=== PATIENT | male | born 1965 | race Two or more races ===

== ENCOUNTER 2017-06-01 14:37 | Emergency (ER) | payer MEDICAID ==
[2017-06-01] MEDS ORDERED: Ketorolac 30 MG/ML SDV IVPUSH ONE (15:17)
[2017-06-01] MEDS ORDERED: Tamsulosin 0.4 MG Cap.ER PO ONE ×2 (15:17→16:54)
[2017-06-01] MEDS ORDERED: Ondansetron 4 MG/2 ML SDV IVPUSH ONE (15:17)
[2017-06-01] MEDS ORDERED: Sodium Chloride 0.9% 1,000 ML IV ONE (15:18)
[2017-06-01] MEDS: Sodium Chloride 0.9% 10 ML Syringe FLUSH PRN ×2 (15:30→15:36)
[2017-06-01 16:03] LABS: CHLORIDE,CL 104 mmol/L (98-107); SODIUM,NA 141 mmol/L (136-145)
[2017-06-01] MEDS ORDERED: cefTRIAXone 1 GM in Sodium Chloride 0.9% 100 ML IV ONE (16:22)
--- NOTE | 2017-06-01 16:37 | EDM.PDOC ---
ED HPI GENERAL MEDICAL PROBLEM - General Chief Complaint: General Stated Complaint: right flank to groin pain, difficulty urinating Time Seen by Provider: 06/01/17 15:12 Source of Information: Reports: Patient History Limitations: Reports: No Limitations - History of Present Illness INITIAL COMMENTS - FREE TEXT/NARRATIVE: Patient brought to ER by relative for evaluation of flank pain. Has quite a significant history of kidney stones that stretches back a number of years. He is fairly certain this pain is stone-related. Patient had some flank pain on the right last week and passed a stone. Pain resolved. Returned today in same right sided pattern. Intermittent nausea noted. No emesis. Mild loose stools today. No fevers/chills. Had trace of blood in urine about three weeks ago but that resolved. No other complaints. Recently moved to [place] from [place]. Disabled from previous back injury. Medical history includes morbid obesity, hypertension, high cholesterol, Type 2 diabetes, asthma. right flank pain/groin Pain Score (Numeric/FACES): 10 - Related Data Allergies Allergy/AdvReac Type Severity Reaction Status Date / Time morphine Allergy Shortness Verified 06/01/17 14:53 of Breath Home Meds: Home Meds RX: Albuterol [Ventolin HFA] 2 puff INH BID PRN 06/01/17 [History] RX: Atenolol 2 tab PO DAILY 06/01/17 [History] RX: Budesonide [Pulmicort Flexhaler] 1 puff IH BID 06/01/17 [History] RX: Lisinopril 40 mg PO DAILY 06/01/17 [History] RX: Pravastatin Sodium 80 mg PO DAILY 06/01/17 [History] RX: glipiZIDE [Glucotrol XL] 10 mg PO ASDIRECTED 06/01/17 [History] RX: metFORMIN HCl [Metformin HCl] 1,000 mg PO ASDIRECTED 06/01/17 [History] RX: traMADol HCl [Tramadol HCl] 50 mg PO Q8HR PRN 06/01/17 [History] Sulfamethoxazole/Trimethoprim [Septra DS] 1 tab PO BID #14 tablet 06/01/17 [Rx] Past Medical History HEENT History: Reports: Impaired Vision Cardiovascular History: Reports: Afib, High Cholesterol, Hypertension Respiratory History: Reports: Asthma Gastrointestinal History: Reports: GERD, Other (See Below) Other Gastrointestinal History: gall stones Genitourinary History: Reports: Renal Calculus Musculoskeletal History: Reports: Arthritis, Back Pain, Chronic, Other (See Below) Other Musculoskeletal History: hx of lower back injury L4-L5 Endocrine/Metabolic History: Reports: Diabetes, Type II Dermatologic History: Reports: Eczema - Infectious Disease History Infectious Disease History: Reports: Chicken Pox, Measles - Past Surgical History GI Surgical History: Reports: None Male Surgical History: Reports: Kidney Stone Extraction Musculoskeletal Surgical History: Reports: None Social & Family History - Tobacco Use Smoking Status *Q: Never Smoker Second Hand Smoke Exposure: No - Caffeine Use Caffeine Use: Reports: Energy Drinks Other Caffeine Use: occasionally - Recreational Drug Use Recreational Drug Use: No ED ROS GENERAL - Review of Systems Review Of Systems: See Below Constitutional: Reports: No Symptoms HEENT: Reports: No Symptoms Respiratory: Reports: No Symptoms Cardiovascular: Reports: No Symptoms GI/Abdominal: Reports: Diarrhea, Nausea. Denies: Black Stool, Bloody Stool, Vomiting : Reports: Dysuria, Flank Pain, Hematuria Musculoskeletal: Reports: No Symptoms Skin: Reports: No Symptoms Neurological: Reports: No Symptoms Psychiatric: Reports: No Symptoms ED EXAM, GENERAL - Physical Exam Exam: See Below Exam Limited By: No Limitations General Appearance: Alert, No Apparent Distress, Obese Eye Exam: Bilateral Eye: EOMI, PERRL Ears: Normal External Exam Nose: Normal Inspection Throat/Mouth: Normal Lips, Normal Voice, No Airway Compromise Head: Atraumatic, Normocephalic Neck: Normal Inspection, Supple, Non-Tender, Full Range of Motion Respiratory/Chest: No Respiratory Distress, Lungs Clear, Normal Breath Sounds, No Accessory Muscle Use Cardiovascular: Regular Rate, Rhythm, No Murmur Peripheral Pulses: 2+: Radial (L), Radial (R) GI/Abdominal: Normal Bowel Sounds, Soft, Non-Tender, Other (rounded obese abdomen) (Male) Exam: Deferred Rectal (Males) Exam: Deferred Back Exam: Other (no tenderness with percussion of flank area and low back ). No: CVA Tenderness (L), CVA Tenderness (R), Muscle Spasm Extremities: Non-Tender, Normal Capillary Refill Neurological: Alert, Oriented, CN II-XII Intact, Normal Cognition, Normal Gait, No Motor/Sensory Deficits Psychiatric: Normal Affect, Normal Mood Skin Exam: Warm, Dry, Intact, Normal Color Course - Vital Signs Last Recorded V/S: Last Vital Signs Temp 36.4 C 06/01/17 14:38 Pulse 65 06/01/17 16:30 Resp 18 06/01/17 16:30 BP 156/91 H 06/01/17 16:30 Pulse Ox 97 06/01/17 16:30 - Orders/Labs/Meds Labs: Laboratory Tests 06/01/17 06/01/17 06/01/17 Range/Units 15:25 15:38 15:38 WBC 10.1 (4.0-10.2) K/uL RBC 4.91 (4.33-5.41) M/uL Hgb 14.1 (13.1-16.8) g/dL Hct 43.1 (39.0-49.0) % MCV 87.8 (84.0-98.0) fL MCH 28.7 (28.2-33.3) pg MCHC 32.7 (31.7-36.0) g/dL RDW 13.8 (11.2-14.1) % Plt Count 309 (150-350) K/uL Neut % (Auto) 71.5 (45.0-80.0) % Lymph % (Auto) 20.0 (10.0-50.0) % [place] % (Auto) 6.6 (2.0-14.0) % Eos % (Auto) 1.5 (0.0-5.0) % Baso % (Auto) 0.4 (0.0-2.0) % Neut # (Auto) 7.24 H (1.40-7.00) K/uL Lymph # (Auto) 2.03 (0.50-3.50) K/uL [place] # (Auto) 0.67 (0.00-1.00) K/uL Eos # (Auto) 0.15 (0.00-0.50) K/uL Baso # (Auto) 0.04 (0.00-0.20) K/uL Sodium 141 (136-145) mmol/L Potassium 4.6 (3.5-5.1) mmol/L Chloride 104 (98-107) mmol/L Carbon Dioxide 29.3 (21.0-32.0) mmol/L BUN 18 (7-18) mg/dL Creatinine 1.16 (0.51-1.17) mg/dL Est Cr Clr Drug Dosing 88.58 mL/min Estimated GFR (MDRD) > 60 mL/min Glucose 183 H (74-106) mg/dL Calcium 8.9 (8.5-10.1) mg/dL Total Bilirubin 0.4 (0.2-1.0) mg/dL AST 21 (15-37) U/L ALT 25 (12-78) U/L Alkaline Phosphatase 41 L (46-116) IU/L Total Protein 7.7 (6.4-8.2) g/dL Albumin 3.1 L (3.4-5.0) g/dL Specimen Type Urinblad Urine Color Yellow Urine Appearance Clear Urine pH 7.0 (5.0-9.0) Ur Specific [place] 1.020 (1.005-1.030) Urine Protein 100 H (NEGATIVE) mg/dL Urine Glucose (UA) Negative (NEGATIVE) mg/dL Urine Ketones Negative (NEGATIVE) mg/dL Urine Occult Blood Small H (NEGATIVE) Urine Nitrite Positive H (NEGATIVE) Urine Bilirubin Negative (NEGATIVE) Urine Urobilinogen 0.2 (0.2-1.0) E.U./dL Ur Leukocyte Esterase Moderate H (NEGATIVE) Urine RBC 5-10 H /HPF Urine WBC 30-40 H /HPF Ur Epithelial Cells Few /LPF Urine Bacteria Few (NONE TO FEW) /HPF Urine Other Meds: Medications Discontinued Medications Generic Name Dose Route Start Last Admin Trade Name Freq PRN Reason Stop Dose Admin Sodium Chloride 1,000 mls @ 999 mls/hr 06/01/17 15:18 06/01/17 15:38 Normal Saline IV 06/01/17 16:18 999 mls/hr .BOLUS ONE Administration Ceftriaxone Sodium 1 gm/ 100 mls @ 200 mls/hr 06/01/17 16:22 06/01/17 16:42 Sodium Chloride IV 06/01/17 16:51 200 mls/hr ONETIME ONE Administration Ketorolac Tromethamine 30 mg 06/01/17 15:17 06/01/17 15:34 Toradol IVPUSH 06/01/17 15:18 30 mg ONETIME ONE Administration Ondansetron HCl 4 mg 06/01/17 15:17 06/01/17 15:29 Zofran IVPUSH 06/01/17 15:18 4 mg ONETIME ONE Administration Sodium Chloride 10 ml 06/01/17 15:17 06/01/17 15:36 Saline Flush FLUSH 10 ml ASDIRECTED PRN Administration Keep Vein Open Tamsulosin HCl 0.4 mg 06/01/17 15:17 06/01/17 15:29 Flomax PO 06/01/17 15:18 0.4 mg ONETIME ONE Administration Tamsulosin HCl 0.4 mg 06/01/17 16:54 06/01/17 16:59 Flomax PO 06/01/17 16:55 Not Given ASDIRECTED ONE - Radiology Interpretation Free Text/Narrative:: CT confirmed presence of significant hydronephrosis on right as well as three stones in right ureter, largest of which measures approximately 9mm CT Results Date: 06/01/17 CT Results Time: 15:45 - Re-Assessments/Exams Free Text/Narrative Re-Assessment/Exam: 06/01/17 16:49 IV access obtained. NS bolus given along with Toradol, Zofran, and PO Flomax. CT performed. Radiology confirmed presence of three stones in right ureter as well as hydronephrosis. Call placed to on-call Urologist at [facility] in [place]. He was in agreement with current treatment plan and will have Urology office call patient on Friday to schedule a follow up appointment with them. Given size of stone, patient will most likely need to undergo lithotripsy treatment. UA eventually obtained. Found to have WBC suggesting UTI. Culture requested. Patient received IV Rocephin in ER for treatment of UTI. Free Text/Narrative Re-Assessment/Exam: 06/01/17 16:55 Patient given ER packs of: Bactrim: take BID for 10 days unless changes are made by Urology Zofran ODT: SL Q6 PRN nausea Toradol 10mg: PO Q6 PRN pain Tramadol 50mg: PO Q6 PRN pain Single Flomax to take tomorrow at 1500 (Tomorrow is holiday and no local pharmacies will be open) If severe symptoms return, patient knows that he can return to our ER or the [facility] in [place] as needed. Departure - Departure Time of Disposition: 16:30 Disposition: Home, Self-Care 01 Condition: Good Clinical Impression: Kidney stone on right side - Discharge Information Prescriptions: Sulfamethoxazole/Trimethoprim [Septra DS] 1 tab PO BID #14 tablet Instructions: Ondansetron oral dissolving tablet, Ketorolac injection, Ondansetron injection, Ceftriaxone injection, Tramadol tablets, Tamsulosin capsules, Ketorolac tablets, Sulfamethoxazole; Trimethoprim, SMX-TMP tablets Referrals: PCP,None [Primary Care Provider] - Forms: ED Department Discharge Additional Instructions: Stay hydrated. If worsening symptoms return and you are no longer able to take care of them well on your own at home, return to the ER for further evaluation, either at [facility] or here in [place]. Take meds as follows: Bactrim: take every 12 hours for 10 days unless changes are made by Urology. The first three days supply you received in the ER. Zofran ODT: dissolve under tongue every 6 hours as needed for nausea Toradol 10mg: take one pill every 6 hours as needed for pain Tramadol 50mg: take one pill every 6 hours as needed for pain Single Flomax to take tomorrow at 3PM If you are unable to see Urology by Friday or Friday (They are to call you Friday to set up an appointment) then follow up at a local clinic as needed if you require additional medication. We do have a clinic here at the hospital as one option.
== END 2017-06-01 17:25 | disposition home or self-care (01) ==
LOC: LL.ED 14:37
DX: N13.2 Hydronephrosis with renal and ureteral calculous obstruction (principal); I10 Essential (primary) hypertension; E78.00 Pure hypercholesterolemia, unspecified; J45.909 Unspecified asthma, uncomplicated; E11.9 Type 2 diabetes mellitus without complications; Z79.84 Long term (current) use of oral hypoglycemic drugs; Z79.899 Other long term (current) drug therapy; Z88.5 Allergy status to narcotic agent
CPT/HCPCS: 36415; 74176; 80053; 81001; 85025; 87086; 96361; 96365; 99284; A9270; J0696; J1885; J2405; J7030; J7050; 87088; 87186

== ENCOUNTER 2017-08-11 13:09 | Emergency (ER) | payer SELFPAY ==
--- NOTE | 2017-08-11 13:43 | EDM.PDOC ---
ED HPI GENERAL MEDICAL PROBLEM - General Chief Complaint: Flank Pain Stated Complaint: R FLANK PAIN Time Seen by Provider: 08/11/17 13:15 Source of Information: Reports: Patient History Limitations: Reports: No Limitations - History of Present Illness INITIAL COMMENTS - FREE TEXT/NARRATIVE: Patient is a 51-year-old who is seen with history of right flank pain which started yesterday describes the pain as 10 out of 10 he has had multiple kidney stones in the past Onset: Gradual Duration: Day(s):, Waxing/Waning Location: Reports: Abdomen Quality: Reports: Stabbing Severity: Severe Improves with: Reports: Medication Worsens with: Reports: None Context: Reports: Other (Renal stones) Right Flank Pain Score (Numeric/FACES): 10 - Related Data Allergies Allergy/AdvReac Type Severity Reaction Status Date / Time morphine Allergy Shortness Verified 08/11/17 13:18 of Breath Home Meds: Home Meds Albuterol [Ventolin HFA] 2 puff INH BID PRN 06/01/17 [History] Atenolol 2 tab PO DAILY 06/01/17 [History] Budesonide [Pulmicort Flexhaler] 1 puff IH BID 06/01/17 [History] Lisinopril 40 mg PO DAILY 06/01/17 [History] Pravastatin Sodium 80 mg PO DAILY 06/01/17 [History] glipiZIDE [Glucotrol XL] 10 mg PO ASDIRECTED 06/01/17 [History] metFORMIN HCl [Metformin HCl] 1,000 mg PO ASDIRECTED 06/01/17 [History] Past Medical History HEENT History: Reports: Impaired Vision Cardiovascular History: Reports: Afib, High Cholesterol, Hypertension Respiratory History: Reports: Asthma Gastrointestinal History: Reports: GERD, Other (See Below) Other Gastrointestinal History: gall stones Genitourinary History: Reports: Renal Calculus Musculoskeletal History: Reports: Arthritis, Back Pain, Chronic, Other (See Below) Other Musculoskeletal History: hx of lower back injury L4-L5 Endocrine/Metabolic History: Reports: Diabetes, Type II Dermatologic History: Reports: Eczema - Infectious Disease History Infectious Disease History: Reports: Chicken Pox, Measles - Past Surgical History GI Surgical History: Reports: None Male Surgical History: Reports: Kidney Stone Extraction Musculoskeletal Surgical History: Reports: None Social & Family History - Tobacco Use Smoking Status *Q: Never Smoker Second Hand Smoke Exposure: No - Caffeine Use Caffeine Use: Reports: Energy Drinks Other Caffeine Use: occasionally - Recreational Drug Use Recreational Drug Use: No ED ROS GENERAL - Review of Systems Review Of Systems: See Below Constitutional: Reports: Other (Obese) HEENT: Reports: No Symptoms Respiratory: Reports: No Symptoms Cardiovascular: Reports: No Symptoms Endocrine: Reports: No Symptoms : Reports: Flank Pain Musculoskeletal: Reports: No Symptoms Skin: Reports: No Symptoms Neurological: Reports: No Symptoms Psychiatric: Reports: No Symptoms Hematologic/Lymphatic: Reports: No Symptoms Immunologic: Reports: No Symptoms ED EXAM, RENAL/ - Physical Exam Exam: See Below Exam Limited By: No Limitations General Appearance: Alert, WD/WN, No Apparent Distress, Moderate Distress, Severe Distress Ears: Normal External Exam, Normal Canal, Hearing Grossly Normal, Normal TMs Nose: Normal Inspection, Normal Mucosa, No Blood Throat/Mouth: Normal Inspection, Normal Lips, Normal Teeth, Normal Gums, Normal Oropharynx, Normal Voice, No Airway Compromise Head: Atraumatic, Normocephalic Neck: Normal Inspection, Supple, Non-Tender, Full Range of Motion Respiratory/Chest: No Respiratory Distress, Lungs Clear, Normal Breath Sounds, No Accessory Muscle Use, Chest Non-Tender Cardiovascular: Regular Rate, Rhythm, No Murmur GI/Abdominal: Normal Bowel Sounds, Soft, Non-Tender, No Organomegaly, No Distention, No Abnormal Bruit, No Mass, Tender (Right flank) (Male) Exam: No Hernia, Normal Inspection, Normal Prostate, Circumcised Rectal (Males) Exam: Normal Exam, Normal Rectal Tone, Prostate Normal Back Exam: CVA Tenderness (R) Extremities: Normal Inspection, Normal Range of Motion, Non-Tender, Normal Capillary Refill, No Pedal Edema Neurological: Alert, Oriented, CN II-XII Intact, Normal Cognition, Normal Gait, Normal Reflexes, No Motor/Sensory Deficits Psychiatric: Normal Affect, Normal Mood Skin Exam: Warm, Dry, Intact, Normal Color, No Rash Lymphatic: No Adenopathy Course - Vital Signs Last Recorded V/S: Last Vital Signs Temp 99 F 08/11/17 13:11 Pulse 98 08/11/17 13:11 Resp 18 08/11/17 13:11 BP 152/97 H 08/11/17 14:03 Pulse Ox 96 08/11/17 13:11 - Orders/Labs/Meds Orders: Active Orders 24 hr Category Date Time Status Abdomen 1V Flat [CR] Stat Exams 08/11/17 13:38 Taken Meds: Medications Discontinued Medications Generic Name Dose Route Start Last Admin Trade Name Davian PRN Reason Stop Dose Admin Atenolol 50 mg 08/11/17 14:06 Tenormin PO 08/11/17 14:07 ONETIME ONE Ketorolac Tromethamine 60 mg 08/11/17 13:42 08/11/17 13:56 Toradol IM 08/11/17 13:43 60 mg ONETIME ONE Administration Lisinopril 40 mg 08/11/17 14:04 Prinivil PO 08/11/17 14:05 NOW STA Tamsulosin HCl 0.4 mg 08/11/17 13:41 08/11/17 13:56 Flomax PO 08/11/17 13:42 0.4 mg ONETIME ONE Administration Departure - Departure Time of Disposition: 14:23 Disposition: DC/[facility]fer to [facility] 02 Clinical Impression: Hypertension, Right nephrolithiasis, Hydronephrosis of right kidney - Discharge Information Referrals: PCP,None [Primary Care Provider] - Forms: ED Department Discharge Care Plan Goals: At this time we'll control his pain with Toradol and Flomax I will control his hypertension in the ER patient needs to reduce fill his medications in the pharmacy I will provide him with scripts for his lisinopril and atenolol. For one month supply he will need to get a primary care physician in that period of time for refills we will also refer him to the ER in [place] for CT of the abdomen secondary to calculi - My Orders Last 24 Hours: My Active Orders 08/11/17 13:38 Abdomen 1V Flat [CR] Stat - Assessment/Plan Last 24 Hours: My Active Orders 08/11/17 13:38 Abdomen 1V Flat [CR] Stat
[2017-08-11] MEDS: Tamsulosin 0.4 MG Cap.ER PO ONE (13:56)
[2017-08-11] MEDS: Ketorolac 60 MG/2 ML SDV IM ONE (13:56)
[2017-08-11] MEDS: Atenolol 50 MG Tab PO ONE (14:14)
[2017-08-11] MEDS: Lisinopril 20 MG Tab PO STA (14:14)
== END 2017-08-11 14:45 ==
LOC: LL.ED 13:09
DX: N13.2 Hydronephrosis with renal and ureteral calculous obstruction (principal); E78.00 Pure hypercholesterolemia, unspecified; I10 Essential (primary) hypertension; E11.9 Type 2 diabetes mellitus without complications; Z88.5 Allergy status to narcotic agent; Z79.899 Other long term (current) drug therapy
CPT/HCPCS: 74018; 96372; 99285; A9270-GY; J1885

== ENCOUNTER 2018-01-29 09:43 | Day surgery (SDC) | payer MEDICAID ==
[2018-01-29] MEDS ORDERED: Sodium Chloride 0.9% 10 ML Syringe FLUSH PRN (10:00)
[2018-01-29] MEDS: Lactated Ringers 1,000 ML IV SCH (10:43)
[2018-01-29] MEDS ORDERED: Midazolam 1 MG/ML 2 ML SDV ONE (11:25)
[2018-01-29] MEDS ORDERED: fentaNYL 100 MCG/2 ML SDV ONE (11:25)
[2018-01-29] MEDS ORDERED: Propofol 200 MG/20 ML SDV ONE (11:25)
--- NOTE | 2018-01-29 11:33 | PCM.PN ---
- General Info Date of Service: 01/29/18 - Review of Systems Systems Review Comment:: 52-year-old obese diabetic male here for his initial screening colonoscopy. he is medically stable to proceed today with no significant recent change in his health status. His recent history and physical is reviewed. I discussed with the patient the proposed colonoscopy. Indications and risks reviewed. These included but were not limited to bleeding and GI injury. He appears to understand and agrees to proceed. - Patient Data Vitals - Most Recent: Last Vital Signs Temp 98.3 F 01/29/18 10:28 Pulse 62 01/29/18 10:28 Resp 18 01/29/18 10:28 BP 135/74 01/29/18 10:28 Pulse Ox 94 L 01/29/18 10:28 Weight - Most Recent: 154.675 kg Lab Results Last 24 Hours: Laboratory Results - last 24 hr 01/29/18 Range/Units 10:26 POC Glucose 109 (65-110) mg/dl Med Orders - Current: Current Medications Lactated Ringer's (Ringers, Lactated) 1,000 mls @ 125 mls/hr IV ASDIRECTED DEBBY Last Admin: 01/29/18 10:43 Dose: 125 mls/hr Sodium Chloride (Saline Flush) 10 ml FLUSH ASDIRECTED PRN PRN Reason: Keep Vein Open Discontinued Medications Fentanyl (Sublimaze) Confirm Administered Dose 100 mcg .ROUTE .STK-MED ONE Stop: 01/29/18 11:26 Midazolam HCl (Versed 1 Mg/Ml) Confirm Administered Dose 2 mg .ROUTE .STK-MED ONE Stop: 01/29/18 11:26 Propofol (Diprivan 20 Ml) Confirm Administered Dose 400 mg .ROUTE .STK-MED ONE Stop: 01/29/18 11:26 - Problem List Review Problem List Initiated/Reviewed/Updated: Yes - My Orders Last 24 Hours: My Active Orders 01/29/18 10:00 Patient Status [ADT] Routine Blood Glucose Check, Bedside [RC] ONETIME Peripheral IV Care [RC] . DIRECTED Verify Patient Consent Obtain [RC] ASDIRECTED Lactated Ringers [Ringers, Lactated] 1,000 ml IV ASDIRECTED Sodium Chloride 0.9% [Saline Flush] 10 ml FLUSH ASDIRECTED PRN Peripheral IV Insertion Adult [OM.PC] Routine 08/30/18 Breakfast Nothing Per Oral Diet [DIET] - Assessment Assessment:: Colon cancer screening - Plan Plan:: Colonoscopy
--- NOTE | 2018-01-29 12:07 | PCM.OPNOTE ---
- General Post-Op/Procedure Note Date of Surgery/Procedure: 01/29/18 Operative Procedure(s): Colonoscopy Findings: Normal Colon Pre Op Diagnosis: Colon Cancer Screening Post-Op Diagnosis: Normal Colon Anesthesia Technique: MAC Primary Surgeon: Jacinto Larson Pathology: none Output, Urine Amount: 0 EBL in mLs: 0 Complications: None Condition: Good Free Text/Narrative:: Intake & Output 01/28/18 01/29/18 01/29/18 22:59 06:59 14:59 Intake Total 700 Balance 700
--- NOTE | 2018-01-30 09:12 | OR ---
Date of Procedure: 01/29/2018 REFERRING PROVIDER: Zayda Gonsales PA-C PREOPERATIVE DIAGNOSIS: Colon cancer screening. POSTOPERATIVE DIAGNOSIS: Normal colon. OPERATIONS PERFORMED: Colonoscopy. INDICATIONS FOR SURGERY: This 52-year-old male presents today for his initial screening colonoscopy. FINDINGS: The patient's colon appeared normal. No polyps or other pathology seen. DESCRIPTION OF PROCEDURE: The patient was taken to the operating room. He was given intravenous sedation, and with him in the left lateral decubitus position, digital rectal exam was performed showing no rectal masses. The Olympus colonoscope was inserted into the rectum. Retroflexed examination of the rectal canal was performed. The scope was then carefully advanced under direct visualization through the entire length of the colon until the cecum was reached. Cecal acquisition was confirmed by noting the normal internal cecal anatomy and also noting the light to transilluminate the abdominal wall in the right lower quadrant. After examining the cecum, the scope was slowly withdrawn sequentially re-examining the colonic segments until the entire colon and rectum had been fully examined. The scope was then removed and the patient was taken from the operating room in satisfactory condition. ESTIMATED BLOOD LOSS: Zero. COMPLICATIONS: None. PROGNOSIS: Good. ZOË Larson MD /[id number]
== END 2018-01-29 13:31 | disposition home or self-care (01) ==
LOC: LL.SDS 09:43
PROVIDERS: ATTEND Surgery
DX: Z12.11 Encounter for screening for malignant neoplasm of colon (principal); E11.42 Type 2 diabetes mellitus with diabetic polyneuropathy; E78.5 Hyperlipidemia, unspecified; E11.21 Type 2 diabetes mellitus with diabetic nephropathy; E66.9 Obesity, unspecified; Z68.41 Body mass index [BMI] 40.0-44.9, adult; R80.0 Isolated proteinuria; Z79.82 Long term (current) use of aspirin; Z79.84 Long term (current) use of oral hypoglycemic drugs; Z79.899 Other long term (current) drug therapy; Z88.5 Allergy status to narcotic agent; Z91.013 Allergy to seafood
CPT/HCPCS: 82962; J2250; J2704; J3010; J7120